=== PATIENT | male | born 1945 | race Caucasian/White ===

== ENCOUNTER 2017-06-23 17:40 | Inpatient (IN) | payer MEDICARE, OTHER ==
[~2017-06-23 17:40] MED LIST: Heparin 1,000 UNITS/ML VIAL ONE
[2017-06-23] MEDS ORDERED: Ibuprofen 800 MG TAB ONE (18:19)
[2017-06-23 18:30] LABS: #Basophils 0.1 thou/uL (0.0-0.2); #Eosinphils 0.3 thou/uL (0.0-0.7); #Lymphocytes 0.9 thou/uL (1.20-3.40); #Monocytes 0.9 thou/uL (0.11-0.59); #Neutrophils 11.2 thou/uL (1.40-6.50); %Basophils 0.4 % (0.0-1.0); %Lymphocytes 6.6 % (21.0-51.0); %Monocytes 6.6 % (0.0-10.0); %Neutrophils 84.3 % (42.0-75.0); Hemoglobin 15.2 g/dL (14.0-18.0); Mean Corpuscular HGB CONC 34.1 g/dL (32.0-36.0); Mean Corpuscular Volume 96.8 fl (80.0-94.0); Mean Platelet Volume 7.8 fL (7.4-10.4); Platelet Count 188 thou/uL (130-400); RBC Distribution Width 11.7 % (11.5-14.5); Red Blood Cell (RBC) Count 4.59 mill/uL (4.70-6.10); White Blood Cell (WBC) Count 13.3 thou/uL (4.8-10.8)
[2017-06-23 18:36] LABS: PTT 29.2 SEC (22.9-36.1); Prothrombin Time 13.7 SEC (12.0-14.7)
[2017-06-23 18:50] LABS: ALT (SGPT) 19 U/L (8-55); AST (SGOT) 21 U/L (5-34); Albumin 3.9 g/dL (3.4-4.8); Alkaline Phosphatase 61 U/L (40-150); Anion Gap 13 mmol/L (10-20); BUN (Urea Nitrogen) 31 mg/dL (8.4-25.7); Bilirubin, Total 0.3 mg/dL (0.2-1.2); CK (CPK) 138 U/L (30-200); Calc. Creatinine Clearance 0 mL/min (70-130); Calcium 9.9 mg/dL (7.8-10.44); Carbon Dioxide 23 mmol/L (23-31); Chloride 105 mmol/L (98-107); Estimated GFR-MDRD 31; Globulin 2.7 g/dL (2.4-3.5); Glucose 99 mg/dL (83-110); Potassium 4.8 mmol/L (3.5-5.1); Protein, Total 6.6 g/dL (5.8-8.1); Sodium 136 mmol/L (136-145)
[2017-06-23 19:02] LABS: CKMB 1.5 ng/mL (0-6.6); Troponin I 0.017 ng/mL (< 0.028)
--- NOTE | 2017-06-23 19:46 | RAD ---
RADIOGRAPH CHEST 1 VIEW: Date: 06/23/17 Time: 5:40 p.m. HISTORY: 71-year-old male with dyspnea. COMPARISON: None. FINDINGS: There are interstitial densities at the bilateral lung bases. It is uncertain whether these are acute or chronic. There is hyperlucency of the lung apices, right greater than left, suggestive of COPD. D espite this, the overall lung volumes are hypoinflated, with the enlarged cardiac shadow projecting i nferior to the diaphragm. There is a dual lead left subclavian pacemaker. No pneumothorax is identifi ed. IMPRESSION: 1. Bilateral basilar mild to moderate interstitial densities. Uncertain whether chronic or acute . 2. Emphysema. 3. Cardiomegaly without congestive heart failure. 4. Pacemaker. JONATHAN [] POS: ESTER
[2017-06-23] MEDS ORDERED: Azithromycin 500 MG in Sodium Chloride 0.9% 250 ML 250 ML IVPB ONE (20:00)
[2017-06-23] MEDS ORDERED: cefTRIAXone\\ROCEPHIN 1 GM, Syringe 0.4 ML in Sterile Water 9.6 ML SLOW IVP SCH (20:00)
[2017-06-23] MEDS: Sodium Chloride 0.9% 1,000 ML IV SCH (20:15)
[2017-06-23] MEDS ORDERED: Acetaminophen 325 MG TAB PO PRN (20:15)
[2017-06-23] MEDS ORDERED: Ondansetron HCl/PF 4 MG/2 ML Vial IVP PRN (20:15)
[2017-06-23] MEDS ORDERED: Ondansetron ODT 4 MG TAB SL PRN (20:15)
--- NOTE | 2017-06-23 21:12 | PDOC.EVN ---
Event Note - Event Note Event Note: [id number] H&P DICTATED 1. Pneumonia 2. HTN 3. DM type 2 plan: see orders
[2017-06-23] MEDS ORDERED: Albuterol Sulfate 1.25 MG/3 ML NEB NEB PRN (21:17)
[2017-06-23] MEDS: Acetaminophen 325 MG TAB PO PRN (21:50)
[2017-06-23 22:46] LABS: Lactic Acid 1.4 mmol/L (0.5-2.2)
--- NOTE | 2017-06-24 00:18 | HP ---
DATE OF ADMISSION: 06/23/2017 CHIEF COMPLAINT: Dyspnea, chills. HISTORY OF PRESENT ILLNESS: Patient is a 71-year-old male with past medical history of coronary omar ry disease, ESRD, COPD, chronic kidney disease, now came to the ER complaining of dyspnea. Dyspnea s tarted today, all of sudden associated with some cough. Cough associated with some sputum production , associated with chest congestion, complaints of fever and chills, also. Fever is up to 103. Sympt oms persisted, so he came to the ER. Denies any chest tightness. Denies any chest pain, denies any palpations. Denies any diarrhea, denies any nausea. Denies any vomiting. PAST MEDICAL HISTORY: As per HPI. PAST SURGICAL HISTORY: Pacemaker. SOCIAL HISTORY: Denies smoking, denies alcohol, denies any drugs. MEDICATIONS: Reviewed. ALLERGIES: No known drug allergies. REVIEW OF SYSTEMS: Constitutional: Positive for fever and chills. Eyes: Denies vision problems. Ears: Denies any hearing loss. Neck: Denies any neck pain. Cardiovascular: Denies any chest pain . Respiratory: Positive for cough and sputum production. Gastrointestinal: Denies nausea, vomitin g. Cranial nerve system: Denies syncope. Psychiatric: Denies anxiety. All other review of systems are reviewed and are negative. PHYSICAL EXAMINATION: CONSTITUTIONAL/VITAL SIGNS: At the time of H&P performed, blood pressure is 139/96, temperature 99.7 , pulse ox 96%, heart rate 87. GENERAL: Patient appears comfortable. HEENT: Pupils are equal, round, and reactive. Anterior nares patent. Nose normal. Ears normal. T eeth intact. Tongue is moist. NECK: Supple. No JVD. CARDIOVASCULAR SYSTEM: S1, S2 present, regular rate and rhythm, no murmurs, no rubs, no gallops. RESPIRATORY SYSTEM: Positive for crackles. Positive for rhonchi. No wheezing, No accessory muscle seen. GASTROINTESTINAL: Soft, nontender, no guarding, no organomegaly, no masses felt. CRANIAL NERVES SYSTEM: Awake, follows commands. Speech clear. PSYCHIATRIC: Mood appropriate at this time. INTEGUMENTARY: No obvious rashes seen. LABORATORY DATA: At the time of H&P performed white count 13.3, hemoglobin 15.2, platelet count is 1 88. PT 13.7, INR 1. BMP shows sodium 136, potassium 4.8, chloride 105, CO2 of 23, BUN 31, creatinin e 2.09. Chest x-ray: Emphysema positive for bilateral basilar mild to moderate interstitial densiti es seen. ASSESSMENT AND PLAN: Patient is a 71-year-old male. 1. Pneumonia. Plan to start patient on broad spectrum antibiotics. Plan to monitor the patient nisa sely. 2. History of chronic obstructive pulmonary disease. Continue breathing treatment. Monitor respira tory status. Continue IV Solu-Medrol 40 q.8 hours. 3. History of hypertension. Monitor blood pressure. Continue blood pressure meds. 4. History of chronic kidney disease stage 3 to 4. Monitor creatinine closely. No further workup n eeded. 5. History of coronary artery disease. Continue aspirin. 6. History of diabetes type 2. Monitor blood sugars. We will do insulin sliding scale. The case was discussed in detail with the patient.
[2017-06-24 02:55] VITALS: BMI 34.0
[2017-06-24] MEDS ORDERED: Enoxaparin Sodium 40 MG/0.4 ML SYRINGE SC SCH (09:00)
[2017-06-24] MEDS: Sodium Chloride 0.9% 1,000 ML IV SCH (11:07)
--- NOTE | 2017-06-24 11:40 | PDOC.PN ---
- Subjective Encounter Start Date: 06/24/17 Encounter Start Time: 09:15 Subjective: feels better this morning -: no cought, quit smoking long back - Objective MAR Reviewed: Yes Vital Signs & Weight: Vital Signs (12 hours) Temp Pulse Resp BP Pulse Ox 06/24/17 11:10 98.0 F 110 H 16 135/56 L 99 06/24/17 10:34 68 16 97 06/24/17 08:00 97.6 F 68 16 97 06/24/17 07:39 97.6 F 68 16 111/74 97 06/24/17 07:13 73 17 97 06/24/17 05:07 97.3 F L 71 16 120/70 98 06/24/17 01:47 72 18 98 06/24/17 00:00 98 F 74 16 95/63 97 Weight Weight 243 lb 8 oz I&O: 06/23/17 06/24/17 06/25/17 06:59 06:59 06:59 Intake Total 920 600 Output Total 600 Balance 320 600 Result Diagrams: 06/23/17 18:14 06/23/17 18:14 Additional Labs: Accuchecks 06/24/17 04:19 POC Glucose 150 H Phys Exam - Physical Examination HEENT: PERRLA, moist MMs Neck: no JVD, supple Respiratory: no wheezing, no rales rhonchi+ Cardiovascular: RRR, no significant murmur Gastrointestinal: soft, non-tender, positive bowel sounds Musculoskeletal: no edema, pulses present Neurological: non-focal, moves all 4 limbs Psychiatric: A&O x 3 Dx/Plan (1) COPD exacerbation Code(s): J44.1 - CHRONIC OBSTRUCTIVE PULMONARY DISEASE W (ACUTE) EXACERBATION Status: Acute (2) Bacteremia Code(s): R78.81 - BACTEREMIA Status: Acute (3) Sepsis Code(s): A41.9 - SEPSIS, UNSPECIFIED ORGANISM Status: Acute Qualifiers: Sepsis type: sepsis due to unspecified organism Qualified Code(s): A41.9 - Sepsis, unspecified organism (4) CKD (chronic kidney disease) stage 3, GFR 30-59 ml/min Code(s): N18.3 - CHRONIC KIDNEY DISEASE, STAGE 3 (MODERATE) Status: Chronic (5) CAD (coronary artery disease) Code(s): I25.10 - ATHSCL HEART DISEASE OF [place] CORONARY ARTERY W/O ANG PCTRS Status: Chronic Qualifiers: Coronary Disease-Associated Artery/Lesion type: [place] artery [place] vs. transplanted heart: [place] heart Associated angina: without angina Qualified Code(s): I25.10 - Atherosclerotic heart disease of [place] coronary artery without angina pectoris (6) Pacemaker Code(s): Z95.0 - PRESENCE OF CARDIAC PACEMAKER Status: Chronic (7) TRUDY (obstructive sleep apnea) Code(s): G47.33 - OBSTRUCTIVE SLEEP APNEA (ADULT) (PEDIATRIC) Status: Chronic - Plan is on zithromax and ceftriaxone -: solumedrol, nebs -: gm+ve cocci bactermia /, will consult -: echo, cpap at night -: f/u with for pulm at [facility], was visiting here (graduation) * . Review of Systems - Medications/Allergies Allergies/Adverse Reactions: Allergies Allergy/AdvReac Type Severity Reaction Status Date / Time No Known Allergies Allergy Verified 06/24/17 02:32 Medications: Current Medications Acetaminophen (Tylenol) 650 mg PO Q4H PRN PRN Reason: Headache/Fever or Pain Last Admin: 06/23/17 21:50 Dose: 650 mg Albuterol Sulfate (Albuterol Sulfate) 1.25 mg NEB Q2H PRN PRN Reason: Wheezing Albuterol/Ipratropium (Duoneb) 3 ml IPPB [id number] YESSENIA Last Admin: 06/24/17 10:34 Dose: 3 ml Enoxaparin Sodium (Lovenox) 40 mg SC [facility] Last Admin: 06/24/17 08:56 Dose: 40 mg Azithromycin 500 mg/ Sodium (Chloride) 250 mls @ 250 mls/hr IVPB Q24HR YESSENIA Ceftriaxone Sodium 1 gm/ (Sterile Water) 10 mls @ 120 mls/hr SLOW IVP Q24HR YESSENIA Sodium Chloride (Normal Saline 0.9%) 1,000 mls @ 50 mls/hr IV .Q20H YESSENIA Last Admin: 06/24/17 11:07 Dose: 1,000 mls Methylprednisolone Sodium Succinate (Solu-Medrol) 40 mg IVP Q8HR YESSENIA Last Admin: 06/24/17 06:32 Dose: 40 mg Sodium Chloride (Flush - Normal Saline) 10 ml IVF PRN PRN PRN Reason: Saline Flush Last Admin: 06/24/17 08:54 Dose: 10 ml
[2017-06-24] MEDS: Acetaminophen 325 MG TAB PO PRN (13:39)
[2017-06-24] MEDS: Nitroglycerin 0.4 MG TAB (25 Tab Bottle) SL PRN ×3 (13:41→19:15)
[2017-06-24 14:31] LABS: Troponin I 0.022 ng/mL (< 0.028)
--- NOTE | 2017-06-24 17:30 | CON ---
DATE OF CONSULTATION: 06/24/2017 REASON FOR CONSULTATION: Bacteremia. HISTORY OF PRESENT ILLNESS: A 71-year-old first admission to this hospital who is originally from [facility] and has a history of coronary artery disease with prior angioplasty and stenting, COPD, lolita al insufficiency and tachyarrhythmias with previous ablation and pacemaker placement a few years ago. Patient was admitted in March to a [facility] with fever, chills, and respirator y symptoms and reportedly was told that he had bacteria in his blood cultures, was treated for 3 days with antimicrobials and then intravenously, and then oral antimicrobials for a couple of weeks and r emained well, came to this area to participate in one of his relative's graduation ceremony at [facility] and then on the day of the ceremony he became sick with chills which developed suddenly, general malaise, some cough and some anterior chest pain. The patient was brought in to the emergency room a nd BP was 139/96, temperature 103 and then 99.7, heart rate 87. The overall exam remarkable for insp iratory crackles in the lung base, right side. The abdomen was soft, nontender. Initial lab results with a white cell count of 13,000, hemoglobin 15, platelets 188, 84% neutrophils, INR 1.0 and creati nine 2.09. We do not have any other creatinines to compare, GFR 31. Liver profile normal. Albumin 3.9. Chest x-ray with interstitial densities, emphysema, cardiomegaly, pacemaker and now we have 2/2 sets of blood cultures with gram positive cocci with preliminary identification showing that they ar e most likely are Streptococci. The patient is awake, alert at this time. Cough intermittently. No headaches, visual symptoms, sore throat, odynophagia, dysphagia, no back pain or neck pain. No join t symptoms. No dyspnea, chest pain has resolved after nitroglycerin. No abdominal pain or diarrhea. No genitourinary symptoms. No joint symptoms. No neurological symptoms or skin disorder. PAST MEDICAL HISTORY: Coronary artery disease, angioplasty, tachyarrhythmia, ablation a few years ag o with pacemaker placement, renal insufficiency, chronic COPD, recent episode of fever with admission to [facility] where reportedly he had positive blood cultures. We have contacted the hospital, but the laboratory was not allowed to release information. SOCIAL HISTORY: Former smoker. ALLERGIES: NONE. CURRENT MEDICATIONS: Tylenol, Eliquis, Ecotrin, Lipitor, azithromycin, ceftriaxone, enoxaparin, leva lbuterol, methylprednisolone 40 mg q.8 h. PHYSICAL EXAMINATION: VITAL SIGNS: T-max 99.7, now 98.0, blood pressure 130/50, pulse 110, respirations 16, O2 sat 99%. SKIN: With no areas of skin breakdown. Peripheral IV access. No Godinez catheter. No lymphadenopath y. HEENT: Ocular movements are conjugate. Nasal passages patent. Oral cavity normal and has quite a f ew teeth missing in the upper maxilla and some decay in the lower. NECK: Supple, no jugular venous distention. LUNGS: With symmetric breath sounds. No crackles or wheezing. HEART: S1, S2. Soft aortic murmur. Regular rate. Pacer pocket without tenderness or erythema. ABDOMEN: Soft, not distended or tender. No ascites. No bladder distention. No genital abnormaliti es. EXTREMITIES: No joint inflammatory activity. Pulses are 1+ in dorsalis pedis. No edema. NEUROLOGIC: Plantar responses are flexor, moves all extremities equally. Cognitive function appears to be intact. LABORATORY DATA: The labs have been discussed above as well as imaging findings and microbiology. ASSESSMENT: 1. Coronary artery disease with prior tachyarrhythmia requiring ablation and pacemaker placement. 2. Recent episode of fever with reportedly positive blood cultures in [facility] in [facility]. 3. Recrudescence of fever of acute onset after having travelled to this area for a [facility] with positive blood cultures with likely Streptococcus. DISCUSSION: Differential diagnosis includes bacteremia associated with colonization of the pacer greg d or endocarditis versus an alternate site which is not apparent at this time. Respiratory tract inf ection is a concern but the lead colonization and endocarditis would be more likely if the bacteria isolated from the blood matches the one from March in [place]. We will request for transfer of information. In the meantime, switch him to Rocephin alone. Discontinue azithromycin. Echocardi ogram, probably will need a TERESSA. If the findings are suggestive of colonization of the lead, then pa cer and lead will have to be removed and then patient treated for a protracted period of time with melo lopezy beta lactam.
[2017-06-24 17:36] LABS: Troponin I 0.023 ng/mL (< 0.028)
[2017-06-24] MEDS: cefTRIAXone\\ROCEPHIN 2 GM in Sodium Chloride 0.9% 100 ML IVPB SCH (17:59)
[2017-06-24] MEDS ORDERED: Diltiazem HCl 125 MG, Admixture Fee 1 EACH in Sodium Chloride 0.9% 100 ML IVPB SCH (19:15)
[2017-06-24] MEDS ORDERED: Azithromycin 500 MG in Sodium Chloride 0.9% 250 ML 250 ML IVPB SCH (20:00)
[2017-06-24] MEDS: Metoprolol Tartrate 50 MG TAB PO SCH (20:22)
[2017-06-24] MEDS: Atorvastatin Calcium 20 MG TAB PO SCH (20:22)
[2017-06-24] MEDS: Dronedarone HCl 400 MG TAB PO SCH (20:22)
[2017-06-24] MEDS: Apixaban 5 MG TAB PO SCH (20:23)
[2017-06-24] MEDS ORDERED: cefTRIAXone\\ROCEPHIN 1 GM in Sterile Water 10 ML SLOW IVP SCH (21:00)
[2017-06-24] MEDS ORDERED: Non-Formulary Item 1 EACH (Pravastatin Sodium [Pravastatin Sodium] 1 TAB) PO SCH (21:00)
[2017-06-24] MEDS: Albuterol Sulfate 1.25 MG/3 ML NEB NEB SCH (22:22)
[2017-06-25 05:19] LABS: #Lymphocytes 0.8 thou/uL (1.20-3.40); #Monocytes 0.5 thou/uL (0.11-0.59); #Neutrophils 15.4 thou/uL (1.40-6.50); %Eosinophils 0.1 % (0.0-10.0); %Lymphocytes 4.8 % (21.0-51.0); %Monocytes 2.9 % (0.0-10.0); %Neutrophils 92.2 % (42.0-75.0); Hemoglobin 13.6 g/dL (14.0-18.0); Mean Corpuscular HGB CONC 31.4 g/dL (32.0-36.0); Mean Corpuscular Volume 98.5 fl (80.0-94.0); Mean Platelet Volume 8.4 fL (7.4-10.4); Platelet Count 198 thou/uL (130-400); RBC Distribution Width 11.9 % (11.5-14.5); Red Blood Cell (RBC) Count 4.39 mill/uL (4.70-6.10); White Blood Cell (WBC) Count 16.7 thou/uL (4.8-10.8)
[2017-06-25 05:29] LABS: Anion Gap 11 mmol/L (10-20); BUN (Urea Nitrogen) 41 mg/dL (8.4-25.7); Calc. Creatinine Clearance 60 mL/min (70-130); Calcium 9.8 mg/dL (7.8-10.44); Carbon Dioxide 23 mmol/L (23-31); Chloride 108 mmol/L (98-107); Estimated GFR-MDRD 39; Glucose 183 mg/dL (83-110); Potassium 5.2 mmol/L (3.5-5.1); Sodium 137 mmol/L (136-145)
[2017-06-25] MEDS: Sodium Chloride 0.9% 1,000 ML IV SCH ×3 (06:55→23:59)
[2017-06-25] MEDS ORDERED: Spiriva 18 MCG CAP (Box of 5 Caps) INH SCH (09:00)
[2017-06-25] MEDS: Albuterol Sulfate 1.25 MG/3 ML NEB NEB SCH ×3 (09:02→22:32)
[2017-06-25] MEDS: Aspirin 81 mg Enteric Coated Tablet PO SCH (09:14)
[2017-06-25] MEDS: Apixaban 5 MG TAB PO SCH ×2 (09:14→20:52)
[2017-06-25] MEDS: Metoprolol Tartrate 50 MG TAB PO SCH ×2 (09:14→20:52)
[2017-06-25] MEDS: Dronedarone HCl 400 MG TAB PO SCH ×2 (09:15→20:52)
--- NOTE | 2017-06-25 11:38 | PDOC.PN ---
- Subjective Encounter Start Date: 06/25/17 Encounter Start Time: 09:00 Subjective: no sob/palp. Cough is better - Objective MAR Reviewed: Yes Vital Signs & Weight: Vital Signs (12 hours) Temp Pulse Resp BP Pulse Ox 06/25/17 09:05 97 06/25/17 09:02 61 16 06/25/17 08:00 98.4 F 61 16 130/67 96 06/25/17 04:00 98.5 F 66 18 96/53 L 96 Weight Weight 243 lb 4.8 oz I&O: 06/24/17 06/25/17 06/26/17 06:59 06:59 06:59 Intake Total 920 932.9 810 Output Total 600 380 Balance 320 932.9 430 Result Diagrams: 06/25/17 04:41 06/25/17 04:41 Additional Labs: Accuchecks 06/25/17 06/24/17 06/24/17 05:56 20:37 16:32 POC Glucose 160 H 176 H 184 H 06/24/17 06/23/17 11:10 20:26 POC Glucose 188 H 109 Phys Exam - Physical Examination HEENT: PERRLA, moist MMs Neck: no JVD, supple Respiratory: no wheezing, no rales Cardiovascular: no significant murmur, irregular Gastrointestinal: soft, non-tender, positive bowel sounds Musculoskeletal: no edema, pulses present Neurological: non-focal, moves all 4 limbs Psychiatric: A&O x 3 Dx/Plan (1) COPD exacerbation Code(s): J44.1 - CHRONIC OBSTRUCTIVE PULMONARY DISEASE W (ACUTE) EXACERBATION Status: Acute (2) Bacteremia Code(s): R78.81 - BACTEREMIA Status: Acute Comment: strep 2/2 (3) Sepsis Code(s): A41.9 - SEPSIS, UNSPECIFIED ORGANISM Status: Acute Qualifiers: Sepsis type: Streptococcus, unspecified Qualified Code(s): A40.9 - Streptococcal sepsis, unspecified; A40 - Streptococcal sepsis (4) CKD (chronic kidney disease) stage 3, GFR 30-59 ml/min Code(s): N18.3 - CHRONIC KIDNEY DISEASE, STAGE 3 (MODERATE) Status: Chronic (5) CAD (coronary artery disease) Code(s): I25.10 - ATHSCL HEART DISEASE OF [place] CORONARY ARTERY W/O ANG PCTRS Status: Chronic Qualifiers: Coronary Disease-Associated Artery/Lesion type: [place] artery [place] vs. transplanted heart: [place] heart Associated angina: without angina Qualified Code(s): I25.10 - Atherosclerotic heart disease of [place] coronary artery without angina pectoris (6) Pacemaker Code(s): Z95.0 - PRESENCE OF CARDIAC PACEMAKER Status: Chronic (7) TRUDY (obstructive sleep apnea) Code(s): G47.33 - OBSTRUCTIVE SLEEP APNEA (ADULT) (PEDIATRIC) Status: Chronic - Plan strep bacteremia, await echo results -: previous blood cs results from [facility] in [place] to b -: -e obtained yet. PCM interrogation -: will dc cardizem drip, is on multaq (had missed 2 doses with rvr) and lopre -: continue eliquis, dc steroids, watch for electrolytes and renal function * . Review of Systems - Medications/Allergies Allergies/Adverse Reactions: Allergies Allergy/AdvReac Type Severity Reaction Status Date / Time No Known Allergies Allergy Verified 06/24/17 02:32 Medications: Current Medications Acetaminophen (Tylenol) 650 mg PO Q4H PRN PRN Reason: Headache/Fever or Pain Last Admin: 06/24/17 13:39 Dose: 650 mg Albuterol Sulfate (Albuterol Sulfate) 1.25 mg NEB [id number] [facility] Last Admin: 06/25/17 09:02 Dose: 1.25 mg Apixaban (Eliquis) 5 mg PO BID [facility] Last Admin: 06/25/17 09:14 Dose: 5 mg Aspirin (Ecotrin) 81 mg PO DAILY YESSENIA Last Admin: 06/25/17 09:14 Dose: 81 mg Atorvastatin Calcium (Lipitor) 20 mg PO HS [facility] Last Admin: 06/24/17 20:22 Dose: 20 mg Dronedarone (Multaq) 400 mg PO BID [facility] Last Admin: 06/25/17 09:15 Dose: 400 mg Ceftriaxone Sodium 2 gm/ (Sodium Chloride) 100 mls @ 200 mls/hr IVPB Q24HR YESSENIA Last Admin: 06/24/17 17:59 Dose: 100 mls Sodium Chloride (Normal Saline 0.9%) 1,000 mls @ 70 mls/hr IV .[id number] [facility] Last Admin: 06/25/17 09:13 Dose: 1,000 mls Isosorbide Mononitrate (Imdur Er) 30 mg PO HS YESSENIA Last Admin: 06/24/17 20:22 Dose: 30 mg Metoprolol Tartrate (Lopressor) 50 mg PO BID YESSENIA Last Admin: 06/25/17 09:14 Dose: 50 mg Nitroglycerin (Nitrostat) 0.4 mg SL Q5MIN PRN PRN Reason: Chest Pain Last Admin: 06/24/17 19:15 Dose: 0.4 mg (Azilsartan Med/Chlorthalidone [ Edarbyclor] 40 Mg/12 .5 Mg 0 each PO DAILY YESSENIA (Roflumilast [ Daliresp] 1 Tab) Hm Med 0 each PO DAILY YESSENIA Sodium Chloride (Flush - Normal Saline) 10 ml IVF PRN PRN PRN Reason: Saline Flush Last Admin: 06/24/17 08:54 Dose: 10 ml
--- NOTE | 2017-06-25 16:35 | CON ---
DATE OF CONSULTATION: 06/25/2017 HISTORY OF PRESENT ILLNESS: The patient is a 71-year-old white male from [place] who is here for his granddaughter's graduation and was admitted with fever, chills, rigors, and temperature 103. He also was somewhat short of breath with this, but denies any chest discomfort or palpitation. He has a cardiac history in that he had a myocardial infarction in 2006 with placement of 2 stents. In June 2008, he began to have palpitations, found to have atrial flutter, and underwent radiofrequency ablation of this. In November 2015, he underwent placement of a pacemaker. In March 2017, he was hospitalized with pneumonia and chest pain. He would have tachycardic episodes up to 156 per minute. He underwent cardiac catheterization and apparently had no significant coronary artery disease. His metoprolol was increased from 25 mg daily to 50 b.i.d., Multaq b.i.d., and Eliquis was added for his episodes of paroxysmal atrial fibrillation. He is not aware when he has rapid heartbeat. He also was apparently treated with antibiotics for his pneumonia at that time. PAST MEDICAL HISTORY: Hypertension, hypercholesterolemia, paroxysmal atrial fibrillation, chronic kidney disease. OPERATIONS: Pacemaker placement and radiofrequency ablation of atrial flutter. Coronary artery stents. MEDICATIONS: Albuterol 1 puff t.i.d. p.r.n., Eliquis 5 mg b.i.d., Ecotrin 81 daily, Edarbyclor 40 mg/12.5 mg daily, Multaq 400 mg b.i.d., isosorbide mononitrate 30 at bedtime, metoprolol 50 b.i.d., omeprazole 20 at bedtime, pravastatin unknown dose daily, Daliresp 1 tablet daily, Spiriva 1 puff daily. ALLERGIES: None. SOCIAL HISTORY: He does not smoke or drink. FAMILY HISTORY: Negative for coronary artery disease. REVIEW OF SYSTEMS: A 12-point review of systems is remarkable. PHYSICAL EXAMINATION: VITAL SIGNS: Blood pressure 130/67, pulse 74. HEENT: PERRL. NECK: Supple. CHEST: Clear. CARDIAC: S1 and S2 are normal without any S3, S4, or murmurs. ABDOMEN: Normal bowel sounds without tenderness or organomegaly. EXTREMITIES: Revealed no clubbing, cyanosis, or edema. NEUROLOGIC: Grossly intact. SKIN: Warm and dry. LABORATORY DATA: Initial EKG revealed atrial pacing with nonspecific ST and T- wave changes on the monitor as well as on subsequent EKGs. He does have a supraventricular tachycardia which appears to be very regular with rate of approximately 150 per minute. He has been placed on Cardizem drip for this. Hemoglobin 13.6, hematocrit 43.2, white count 16,700, platelets 198,000. INR 1.0. Sodium 137, potassium 5.2, chloride 108, carbon dioxide 23, BUN 41, creatinine 1.75. Cardiac enzymes were unremarkable. BNP 192.4. IMPRESSION: 1. Temperature of 103, rigors with episode of pneumonia in March 2017. Certainly there needs to be concerned about the possibility of sepsis. He is growing non-hemolytic strep out of 2/2 blood cultures, concern regarding colonization of pacing wires needs to be considered. 2. History of myocardial infarction and coronary artery stent placement in 2007. He underwent a repeat catheterization in March 2017 and apparently he had no significant disease. 3. Status post pacemaker placement in November 2015. 4. History of radiofrequency ablation of atrial flutter. 5. Paroxysmal atrial fibrillation. On Eliquis, Multaq, and increased doses of beta oscar. 6. Hypertension. 7. Hypercholesterolemia. PLAN: Arrangements will be made for transesophageal echo to rule out vegetations on his pacing wire. Echocardiogram will be performed. His pacemaker is a Biotronik and this will be interrogated to see the frequency of his episodes of atrial arrhythmias. This certainly may be worse recently with this episode of sepsis at the current time. STEFANIE
[2017-06-25] MEDS: cefTRIAXone\\ROCEPHIN 2 GM in Sodium Chloride 0.9% 100 ML IVPB SCH (17:10)
[2017-06-25] MEDS: Atorvastatin Calcium 20 MG TAB PO SCH (20:52)
[2017-06-26 08:02] LABS: #Lymphocytes 1.4 thou/uL (1.20-3.40); #Monocytes 0.9 thou/uL (0.11-0.59); #Neutrophils 11.1 thou/uL (1.40-6.50); %Basophils 0.1 % (0.0-1.0); %Eosinophils 0.2 % (0.0-10.0); %Lymphocytes 10.6 % (21.0-51.0); %Monocytes 6.7 % (0.0-10.0); %Neutrophils 82.5 % (42.0-75.0); Hemoglobin 13.4 g/dL (14.0-18.0); Mean Corpuscular HGB CONC 33.7 g/dL (32.0-36.0); Mean Platelet Volume 7.8 fL (7.4-10.4); Platelet Count 183 thou/uL (130-400); RBC Distribution Width 11.8 % (11.5-14.5); Red Blood Cell (RBC) Count 4.07 mill/uL (4.70-6.10); White Blood Cell (WBC) Count 13.5 thou/uL (4.8-10.8)
[2017-06-26] MEDS: Dronedarone HCl 400 MG TAB PO SCH ×2 (08:09→21:20)
[2017-06-26] MEDS: Aspirin 81 mg Enteric Coated Tablet PO SCH (08:09)
[2017-06-26] MEDS: Metoprolol Tartrate 50 MG TAB PO SCH ×2 (08:10→21:20)
[2017-06-26] MEDS: Apixaban 5 MG TAB PO SCH ×2 (08:10→21:20)
[2017-06-26 08:14] LABS: Anion Gap 11 mmol/L (10-20); BUN (Urea Nitrogen) 42 mg/dL (8.4-25.7); Calc. Creatinine Clearance 64 mL/min (70-130); Calcium 9.8 mg/dL (7.8-10.44); Carbon Dioxide 23 mmol/L (23-31); Chloride 109 mmol/L (98-107); Estimated GFR-MDRD 42; Glucose 119 mg/dL (83-110); Potassium 4.6 mmol/L (3.5-5.1); Sodium 138 mmol/L (136-145)
[2017-06-26] MEDS: Albuterol Sulfate 1.25 MG/3 ML NEB NEB SCH ×3 (09:10→22:47)
[2017-06-26] MEDS ORDERED: Propofol 200 MG/20 ML VIAL ONE (09:35)
--- NOTE | 2017-06-26 12:22 | PDOC.PN ---
- Subjective Encounter Start Date: 06/26/17 Encounter Start Time: 10:00 Subjective: no sob, feels better -: is npo for TERESSA - Objective MAR Reviewed: Yes Vital Signs & Weight: Vital Signs (12 hours) Temp Pulse Resp BP Pulse Ox 06/26/17 09:12 99 06/26/17 09:10 68 12 06/26/17 08:00 96.3 F L 63 20 100 06/26/17 07:54 96.3 F L 63 20 158/74 H 100 06/26/17 04:00 98.2 F 62 18 141/65 H 99 Weight Weight 243 lb 4.8 oz I&O: 06/25/17 06/26/17 06/27/17 06:59 06:59 06:59 Intake Total 932.9 1870 Output Total 1010 300 Balance 932.9 860 -300 Result Diagrams: 06/26/17 07:52 06/26/17 07:52 Additional Labs: Accuchecks 06/26/17 06/25/17 06/25/17 06:07 20:02 17:35 POC Glucose 117 H 242 H 153 H Phys Exam - Physical Examination HEENT: PERRLA, moist MMs Neck: no JVD, supple Respiratory: no wheezing, no rales Cardiovascular: RRR, no significant murmur Gastrointestinal: soft, non-tender, no distention, positive bowel sounds Musculoskeletal: no edema, pulses present Neurological: non-focal, moves all 4 limbs Psychiatric: A&O x 3 Dx/Plan (1) COPD exacerbation Code(s): J44.1 - CHRONIC OBSTRUCTIVE PULMONARY DISEASE W (ACUTE) EXACERBATION Status: Acute Comment: resolving (2) Bacteremia Code(s): R78.81 - BACTEREMIA Status: Acute Comment: strep 2/2 (3) Sepsis Code(s): A41.9 - SEPSIS, UNSPECIFIED ORGANISM Status: Acute Qualifiers: Sepsis type: Streptococcus, unspecified Qualified Code(s): A40.9 - Streptococcal sepsis, unspecified; A40 - Streptococcal sepsis (4) CKD (chronic kidney disease) stage 3, GFR 30-59 ml/min Code(s): N18.3 - CHRONIC KIDNEY DISEASE, STAGE 3 (MODERATE) Status: Chronic (5) CAD (coronary artery disease) Code(s): I25.10 - ATHSCL HEART DISEASE OF [place] CORONARY ARTERY W/O ANG PCTRS Status: Chronic Qualifiers: Coronary Disease-Associated Artery/Lesion type: [place] artery [place] vs. transplanted heart: [place] heart Associated angina: without angina Qualified Code(s): I25.10 - Atherosclerotic heart disease of [place] coronary artery without angina pectoris (6) Pacemaker Code(s): Z95.0 - PRESENCE OF CARDIAC PACEMAKER Status: Chronic (7) TRUDY (obstructive sleep apnea) Code(s): G47.33 - OBSTRUCTIVE SLEEP APNEA (ADULT) (PEDIATRIC) Status: Chronic - Plan await TERESSA results -: is on ceftriaxone 2g iv daily -: awaiting prior culture results from [place] -: dc steroids, nebs prn -: to amb as tolerated, ?picc line per advice * . Review of Systems - Medications/Allergies Allergies/Adverse Reactions: Allergies Allergy/AdvReac Type Severity Reaction Status Date / Time No Known Allergies Allergy Verified 06/24/17 02:32 Medications: Current Medications Acetaminophen (Tylenol) 650 mg PO Q4H PRN PRN Reason: Headache/Fever or Pain Last Admin: 06/24/17 13:39 Dose: 650 mg Albuterol Sulfate (Albuterol Sulfate) 1.25 mg NEB [id number] [facility] Last Admin: 06/26/17 09:10 Dose: 1.25 mg Apixaban (Eliquis) 5 mg PO BID [facility] Last Admin: 06/26/17 08:10 Dose: 5 mg Aspirin (Ecotrin) 81 mg PO DAILY [facility] Last Admin: 06/26/17 08:09 Dose: 81 mg Atorvastatin Calcium (Lipitor) 20 mg PO HS [facility] Last Admin: 06/25/17 20:52 Dose: 20 mg Dronedarone (Multaq) 400 mg PO BID [facility] Last Admin: 06/26/17 08:09 Dose: 400 mg Ceftriaxone Sodium 2 gm/ (Sodium Chloride) 100 mls @ 200 mls/hr IVPB Q24HR [facility] Last Admin: 06/25/17 17:10 Dose: 100 mls Isosorbide Mononitrate (Imdur Er) 30 mg PO HS [facility] Last Admin: 06/25/17 20:52 Dose: 30 mg Metoprolol Tartrate (Lopressor) 50 mg PO BID [facility] Last Admin: 06/26/17 08:10 Dose: 50 mg Nitroglycerin (Nitrostat) 0.4 mg SL Q5MIN PRN PRN Reason: Chest Pain Last Admin: 06/24/17 19:15 Dose: 0.4 mg (Azilsartan Med/Chlorthalidone [ Edarbyclor] 40 Mg/12 .5 Mg 0 each PO DAILY YESSENIA (Roflumilast [ Daliresp] 1 Tab) Hm Med 0 each PO DAILY YESSENIA Sodium Chloride (Flush - Normal Saline) 10 ml IVF PRN PRN PRN Reason: Saline Flush Last Admin: 06/24/17 08:54 Dose: 10 ml
[2017-06-26] MEDS ORDERED: Diprivan 20 ML ONE (12:42)
[2017-06-26] MEDS ORDERED: Promethazine HCl 25 MG/ML VIAL SLOW IVP PRN (13:13)
[2017-06-26] MEDS ORDERED: Ondansetron HCl/PF 4 MG/2 ML Vial IVP PRN (13:13)
[2017-06-26] MEDS: cefTRIAXone\\ROCEPHIN 2 GM in Sodium Chloride 0.9% 100 ML IVPB SCH (17:43)
[2017-06-26] MEDS: CHLORTHALIDONE PO SCH ×2 (20:07→20:08)
[2017-06-26] MEDS: AZILSARTAN MED PO SCH ×2 (20:07→20:08)
[2017-06-26] MEDS: ROFLUMILAST PO SCH (20:08)
--- NOTE | 2017-06-26 20:14 | ECHO ---
TRANSESOPHAGEAL ECHOCARDIOGRAM DATE: 06/26/2017 HISTORY: A 71-year-old gentleman with sepsis and a pacemaker. DESCRIPTION OF PROCEDURE: The patient was taken to the PACU. The patient is sedated by Anesthesiology. The transesophageal p robe was placed in the distal esophagus and stomach. Echocardiographic images were obtained. The tr ansesophageal probe was removed. FINDINGS: 1. Normal left ventricular systolic function. 2. The aortic valve leaflets are mildly thickened. 3. Normal mitral valve. 4. Mild mitral regurgitation. 5. Mild tricuspid regurgitation. 6. No obvious vegetations noted on the cardiac valves or electronic pacemaker. 7. Atherosclerotic debris in the descending aorta. IMPRESSION: No obvious vegetation on the cardiac valves or pacemaker. POS: ESTER
[2017-06-26] MEDS: Atorvastatin Calcium 20 MG TAB PO SCH (21:20)
[2017-06-27 05:17] LABS: #Eosinphils 0.1 thou/uL (0.0-0.7); #Lymphocytes 2.3 thou/uL (1.20-3.40); #Monocytes 0.8 thou/uL (0.11-0.59); #Neutrophils 6.3 thou/uL (1.40-6.50); %Basophils 0.4 % (0.0-1.0); %Lymphocytes 24.1 % (21.0-51.0); %Monocytes 8.8 % (0.0-10.0); %Neutrophils 65.7 % (42.0-75.0); Hemoglobin 13.3 g/dL (14.0-18.0); Mean Corpuscular HGB CONC 33.3 g/dL (32.0-36.0); Mean Corpuscular Hemoglobin 32.4 pg (27.0-31.0); Mean Corpuscular Volume 97.4 fl (80.0-94.0); Mean Platelet Volume 7.9 fL (7.4-10.4); Platelet Count 185 thou/uL (130-400); RBC Distribution Width 11.6 % (11.5-14.5); Red Blood Cell (RBC) Count 4.11 mill/uL (4.70-6.10); White Blood Cell (WBC) Count 9.5 thou/uL (4.8-10.8)
[2017-06-27 05:25] LABS: Anion Gap 9 mmol/L (10-20); BUN (Urea Nitrogen) 38 mg/dL (8.4-25.7); Calc. Creatinine Clearance 64 mL/min (70-130); Calcium 9.7 mg/dL (7.8-10.44); Carbon Dioxide 26 mmol/L (23-31); Chloride 107 mmol/L (98-107); Estimated GFR-MDRD 42; Glucose 97 mg/dL (83-110); Potassium 4.8 mmol/L (3.5-5.1); Sodium 137 mmol/L (136-145)
[2017-06-27] MEDS: Albuterol Sulfate 1.25 MG/3 ML NEB NEB SCH ×3 (07:40→22:41)
[2017-06-27] MEDS: Dronedarone HCl 400 MG TAB PO SCH ×2 (08:41→20:39)
[2017-06-27] MEDS: Aspirin 81 mg Enteric Coated Tablet PO SCH (08:41)
[2017-06-27] MEDS: Metoprolol Tartrate 50 MG TAB PO SCH ×2 (08:41→20:39)
[2017-06-27] MEDS: Apixaban 5 MG TAB PO SCH ×2 (08:41→20:39)
--- NOTE | 2017-06-27 10:56 | PDOC.PN ---
- Subjective Encounter Start Date: 06/27/17 Encounter Start Time: 10:25 Subjective: f/u for strep bacteremia of unclear source. Receiving Rocephin daily and -: clinically stable. TERESSA negative for vegetations. Plan for Rocephin x 4 week -: and PICC line placement today. - Objective MAR Reviewed: Yes Vital Signs & Weight: Vital Signs (12 hours) Temp Pulse Resp BP Pulse Ox 06/27/17 07:42 97.3 F L 65 18 99 06/27/17 07:41 97.3 F L 65 18 183/85 H 99 06/27/17 07:40 66 16 99 06/27/17 04:07 100 06/27/17 04:00 98.6 F 73 18 168/72 H 99 Weight Weight 237 lb 3.2 oz I&O: 06/26/17 06/27/17 06/28/17 06:59 06:59 06:59 Intake Total 1870 3243 Output Total 1010 1325 Balance 860 1918 Result Diagrams: 06/27/17 04:49 06/27/17 04:49 Additional Labs: Accuchecks 06/27/17 06/26/17 06/26/17 05:53 20:30 16:56 POC Glucose 90 121 H 150 H 06/26/17 11:18 POC Glucose 94 Microbiology 06/23/17 19:45 Venous blood - Right Arm Blood Culture - Final Str.infantarius/infantarius 06/23/17 19:45 Venous blood - Left Arm Blood Culture - Final Str.infantarius/infantarius 06/23/17 18:00 Nasopharyngeal swab Influenza Types A,B Direct EIA - Final Laboratory Tests 06/23/17 06/25/17 06/26/17 18:14 04:41 07:52 WBC 13.3 H 16.7 H 13.5 H Radiology Reviewed by me: Yes (TERESSA - no vegetations) EKG Reviewed by me: Yes (Tele - AV pacing) Phys Exam - Physical Examination Constitutional: NAD HEENT: PERRLA, oral pharynx no lesions Neck: no JVD, supple Respiratory: no wheezing, clear to auscultation bilateral Cardiovascular: RRR Gastrointestinal: soft, non-tender, no distention, positive bowel sounds Musculoskeletal: no edema, pulses present Neurological: moves all 4 limbs Psychiatric: A&O x 3 Skin: normal turgor, cap refill <2 seconds Dx/Plan (1) Bacteremia Code(s): R78.81 - BACTEREMIA Status: Acute Comment: strep infantarius 2/2 + , continue Rocephin for 4 weeks (2) Sepsis Code(s): A41.9 - SEPSIS, UNSPECIFIED ORGANISM Status: Acute Qualifiers: Sepsis type: Streptococcus, unspecified Qualified Code(s): A40.9 - Streptococcal sepsis, unspecified; A40 - Streptococcal sepsis Comment: Secondary to #1, resolved (3) CAD (coronary artery disease) Code(s): I25.10 - ATHSCL HEART DISEASE OF [place] CORONARY ARTERY W/O ANG PCTRS Status: Chronic Qualifiers: Coronary Disease-Associated Artery/Lesion type: [place] artery [place] vs. transplanted heart: [place] heart Associated angina: without angina Qualified Code(s): I25.10 - Atherosclerotic heart disease of [place] coronary artery without angina pectoris Comment: chronic and stable, continue home regimen (4) CKD (chronic kidney disease) stage 3, GFR 30-59 ml/min Code(s): N18.3 - CHRONIC KIDNEY DISEASE, STAGE 3 (MODERATE) Status: Chronic Comment: Stable (5) TRUDY (obstructive sleep apnea) Code(s): G47.33 - OBSTRUCTIVE SLEEP APNEA (ADULT) (PEDIATRIC) Status: Chronic Comment: CPAP nocturnally (6) Pacemaker Code(s): Z95.0 - PRESENCE OF CARDIAC PACEMAKER Status: Chronic Comment: Normal functioning device after interrogation - Plan continue antibiotics, public health social worker, out of bed/ambulate, DVT proph w/SCDs Stable overall -: PICC line placement today -: Plan for Rocephin 1gm IV q24h x 4 weeks -: Continue ASA, Lipitor and Metoprolol -: CM to assist with outpt abx coordination * Likely home in am
--- NOTE | 2017-06-27 13:50 | CCL ---
SONOGRAPHIC GUIDED RIGHT UPPER EXTREMITY PICC PLACEMENT: History: Sepsis. Need for long-term antibiotics. FINDINGS: After explaining the procedure and answering all questions, the right upper extremity was prepped and draped in the usual sterile fashion. Sterile technique, buffered local anesthesia, sonographic osito nce and a 22 gauge needle were used to carefully access the right basilic vein. Standard technique wa s then used to carefully place a 5 [place] single lumen PICC so that the tip lies at the level of the superior vena cava. The catheter was flushed and secured externally. The patient tolerated the proced ure well and was returned in unchanged condition. Fluoro time equals 0 seconds. IMPRESSION: Technically successful right upper extremity PICC placement. Catheter is ready for use. POS: ESTER
[2017-06-27] MEDS: cefTRIAXone\\ROCEPHIN 2 GM in Sodium Chloride 0.9% 100 ML IVPB SCH (18:26)
[2017-06-27] MEDS: Atorvastatin Calcium 20 MG TAB PO SCH (20:39)
[2017-06-28] MEDS: Albuterol Sulfate 1.25 MG/3 ML NEB NEB SCH (07:03)
[2017-06-28] MEDS: Dronedarone HCl 400 MG TAB PO SCH (08:58)
--- NOTE | 2017-06-28 08:58 | SPC ---
SONOGRAPHIC GUIDED RIGHT UPPER EXTREMITY PICC PLACEMENT: History: Sepsis. Need for long-term antibiotics. FINDINGS: After explaining the procedure and answering all questions, the right upper extremity was prepped and draped in the usual sterile fashion. Sterile technique, buffered local anesthesia, sonographic guidance and a 22 gauge needle were used to carefully access the right basilic vein. Standard technique was then used to carefully place a 5 [place] single lumen PICC so that the tip lies at the level of the superior vena cava. The catheter was flushed and secured externally. The patient tolerated the procedure well and was returned in unchanged condition. Fluoro time equals 0 seconds. IMPRESSION: Technically successful right upper extremity PICC placement. Catheter is ready for use.
[2017-06-28] MEDS: Aspirin 81 mg Enteric Coated Tablet PO SCH (08:59)
[2017-06-28] MEDS: Acetaminophen 325 MG TAB PO PRN (08:59)
[2017-06-28] MEDS: Metoprolol Tartrate 50 MG TAB PO SCH (08:59)
[2017-06-28] MEDS: Apixaban 5 MG TAB PO SCH (08:59)
[2017-06-28] MEDS: cefTRIAXone\\ROCEPHIN 2 GM in Sodium Chloride 0.9% 100 ML IVPB SCH (11:36)
[2017-06-28 12:04] VITALS: BP 161/79; TEMP 97.9
--- NOTE | 2017-06-28 13:17 | DIS ---
DATE OF ADMISSION: 06/23/2017 DATE OF DISCHARGE: 06/28/2017 DISCHARGE DIAGNOSES: 1. Sepsis syndrome secondarily to #2, resolving. 2. Bacteremia with Streptococcus infantarius. 3. Coronary artery disease, chronic and stable. 4. Chronic kidney disease stage 3, stable. 5. Obstructive sleep apnea with nocturnal CPAP. 6. Biotronik pacemaker with normal functioning device. CONSULTATIONS: 1. Dr. Duarte and Dr. Gonzales with Cardiology Service. 2. Dr. Villalpando with Infectious Disease Service. PERTINENT LAB AND X-RAY FINDINGS: Creatinine ranged between 1.63-2.09. Troponin I negative x1. BNP 192. CBC showed a white blood cell count ranging between 9.5-16.7, hemoglobin ranged between 13.3-1 5.2. Blood cultures x2 dated 06/23/2017 positive for Streptococcus infantarius. Influenza A and B a ntigen on 06/23/2017 negative. Portable chest x-ray dated 06/23/2017 showed bilateral basilar inters titial densities. Emphysematous changes noted. Cardiomegaly without evidence of pulmonary edema. P acemaker device in place. A 2D transthoracic echocardiogram dated 06/25/2017 showed ejection fractio n of 55% to 60%. Pacer wire visualized in the right ventricle. Mild to moderate tricuspid valve reg urgitation noted. Transesophageal echocardiogram dated 06/26/2017 showed preserved ejection fraction . No obvious vegetation on cardiac valves or pacemaker lead. HOSPITAL COURSE: Patient was initially admitted to the telemetry unit after presenting with dyspnea and fever. The patient was initially noted with a temperature of 103 degrees Fahrenheit, placed on b road spectrum IV antibiotic therapy after concern for sepsis syndrome. The patient was initially jewel ated for suspected pneumonia with broad spectrum IV antibiotic therapy in addition to IV Solu-Medrol. Concern for sources of sepsis including the pacemaker device with lead involvement undergoing echoc ardiogram evaluation and consultation with Infectious Disease Service. Blood cultures were positive for 2/2 for Streptococcus infantarius, at which the patient was transitioned to IV Rocephin at the di rection of the Infectious Disease Service. No specific evidence on transesophageal echocardiogram of valvular vegetations or lead involvement; however, due to patient's longstanding pacemaker placement , concern was for potential colonization. Current recommendations are to continue IV Rocephin for ap proximately 4 weeks with repeat blood cultures at the end of antibiotic therapy. Cardiology evaluati on showed normal functioning Biotronik pacemaker device with telemetry monitoring confirming intermit tent pacing in the 60-70 range. The patient overall clinically improved in the first 24-48 hours wit h antibiotic therapy and general supportive care. The patient has been evaluated by case management services and deemed appropriate for ongoing home health services to continue outpatient infusion serv ices with Rocephin for 4 weeks after discharge. Overall, the patient clinically stabilized, tolerati ng regular oral intake, ambulatory without assistance or difficulty, voiding appropriately and ready for discharge on 06/28/2017. DISCHARGE MEDICATIONS: 1. Rocephin 2 grams IV q.24 hours x4 weeks. 2. ProAir HFA 1 puff inhaled t.i.d. p.r.n. 3. Eliquis 5 mg 1 tablet p.o. b.i.d. 4. Enteric coated aspirin 81 mg 1 tablet p.o. daily. 5. Azilsartan 40 mg/chlorthalidone 12.5 mg 1 tablet p.o. daily. 6. Multaq 400 mg p.o. b.i.d. 7. Flonase 1 spray in each naris daily. 8. Isosorbide mononitrate 30 mg p.o. at bedtime. 9. Metoprolol tartrate 50 mg p.o. b.i.d. 10. Omeprazole 20 mg p.o. at bedtime. 11. Pravachol 80 mg p.o. at bedtime. 12. Daliresp 500 mcg p.o. daily. 13. Spiriva 18 mcg inhaled daily. FOLLOWUP: The patient will follow up with his primary care provider, Dr. German in [facility] within 7 days of discharge. The patient will also follow up with his primary electro mechanical assembler in [facility] after discha rge. CONDITION ON DISCHARGE: Stable. ACTIVITY: Ad yimi. DIET: Heart healthy. SPECIAL INSTRUCTIONS: Continue Rocephin 2 g IV q.24 hours x4 weeks. Weekly CBC. Repeat blood cultu res at completion of antibiotic course. CODE STATUS: FULL. DISPOSITION: Home, with [facility] 06/28/2017. Total time preparing and coordinating discharge 45 minutes.
--- NOTE | 2017-06-30 16:46 | PQF ---
DREA WEST ALLEN [id number] CLINICAL DOCUMENTATION CLARIFICATION FORM: POST DISCHARGE Addendum to original discharge summary date: ____ Late entry note date: __ DATE: 06/30/17 ATTN: Tor Estrada MD Please exercise your independent, professional judgment in responding to the clarification form. Clinical indicators are provided on the bottom of this form for your review Discharge Summary pg. 1 Hospital Course: ....The patient was initially treated for suspected pneumonia with broad spectrum IV antibiotic therapy in addition to IV Solu-Medrol. Concerns for sources of swpsis including the pacemaker device with lead involvement undergoing echocardiogram evaluation and consultation with Infectious Disease Service. H & P pg. 3 A & S # 1. Pneumonia. Plan to start patient on broad spectrum antibiotics.... [xx ] Diagnosis of: PNA [ X] Present on admission: [ X ] Yes [ ] No [ ] Unable to determine [ ] Other diagnosis: Coding guidelines require hospitals to identify whether a diagnosis was present on admission (POA) or not. To accurately assign the appropriate POA indicator, this information must be clearly documented within the medical record. CLINICAL INDICATORS - SIGNS / SYMPTOMS / LABS Documentation of: Documentation of: Documentation of: RISK FACTORS: TREATMENT: (This form is maintained as a part of the permanent medical record) 2014 [employer]. All Rights Reserved [email or web address] [phone] STEFANIE
--- NOTE | 2017-07-08 13:33 | EKG ---
Test Reason : Blood Pressure : / mmHG Vent. Rate : 120 BPM Atrial Rate : 090 BPM P-R Int : 000 ms QRS Dur : 086 ms QT Int : 336 ms P-R-T Axes : 024 021 058 degrees QTc Int : 474 ms sinus rythm progressing to atrial fibrillation Nonspecific ST abnormality Abnormal ECG No previous ECGs available Confirmed by JERAMY LUCIO MD ([id number]) on 07/08/2017 1:33:14 PM Referred By: PRASHANTH Confirmed By:JERAMY LUCIO MD
--- NOTE | 2017-07-08 15:57 | EKG ---
Test Reason : Blood Pressure : / mmHG Vent. Rate : 079 BPM Atrial Rate : 079 BPM P-R Int : 118 ms QRS Dur : 082 ms QT Int : 342 ms P-R-T Axes : 021 001 129 degrees QTc Int : 392 ms Electronic atrial pacemaker Abnormal ECG Confirmed by PEDRITO DIAZ, ALEXANDER Huggins ([id number]), society editor LANETTE FLOWERS ([id number]) on 07/08/2017 3:56:51 PM Referred By: Confirmed By:ALEXANDER MAJOR MD
--- NOTE | 2017-07-20 18:17 | PQF ---
DREA WEST Allen MD [id number] CLINICAL DOCUMENTATION CLARIFICATION FORM: POST DISCHARGE Addendum to original discharge summary date: ____ Late entry note date: __ DATE: 07/20/2017 ATTN: Tor Estrada MD Please exercise your independent, professional judgment in responding to the clarification form. Clinical indicators are provided on the bottom of this form for your review Discharge Diagoses: 1. Sepsis syndrome...... 06/27/17 PN pg. 3 Dx/Plan #2 Sepsis Post-OP Note Post-Op Diagnosis: Sepsis Admission Vital signs Temp of 103, HR 87, R24, WBC 13.3 Please check appropriate box(s): [ ] Sepsis due to: (Pna, UTI, gangrenous gall bladder, etc.) Due to: [ ] Device (please specify) [ ] Implant [ ] Graft [ ] Infusion [ ] SIRS due to non-infectious process (please specify etiology) [ ] with organ dysfunction [ ] without organ dysfunction [ ] Severe sepsis with acute organ dysfunction of: (Examples: respiratory failure, encephalopathy, acute kidney failure, other) [ ] Localized infection without sepsis [ ] Other diagnosis [ ] Unable to determine In addition, please specify: Present on Admission (POA): [ ] Yes [ ] No [ ] Unable to determine For continuity of documentation, please document condition throughout progress notes and discharge summary. Thank You. CLINICAL INDICATORS - SIGNS / SYMPTOMS / LABS Altered mental status Fever or hypothermia (<96.8 F/36 C or > 100.4 F/38C) SAP Museum Exhibit Technician Crystal Reports Winform ViewerRespiratory rate >22/min, Hypoxemia, SBP <100mmHg Metabolic acidosis Lactic Acid >2mmol/L, Increase BUN/Blocker Polishing, decrease GFR, coag abnormalities, thrombocytopenia-plts <100k Oliguria Shock-hypotension resistant to IV fluid boluses WBC count (>12,000/mm^4 or <4000/mm^3 or 10% neuts, 10% bands) Hyperglycemia in absence of diabetes mellitus Positive blood cultures RISK FACTORS Infection/Bacteremia Pneumonia, UTI, infected wound, gangrenous gall bladder Diabetes or Cancer Surgery / surgical instrumentation / trauma Ruptured/perforated bowel, ruptured appendix Immunosuppression Advancing Age TREATMENTS: Initiation Sepsis Protocol ICU Daily CBC Blood/sputum/wound cultures ID Consult IV antibiotics - broad spectrum IV Fluids Vasopressors, meds (This form is maintained as a part of the permanent medical record) 2014 [employer]. All Rights Reserved [email or web address] [email or web address] [phone] STEFANIE
== END 2017-06-28 13:08 | disposition home health service (06) | DRG 190 ==
LOC: ERS 17:40 → T4-B 19:00 → 2NO 06-24 17:11
PROVIDERS: ADMIT Internal Medicine Addiction Medicine; ATTEND Internal Medicine Addiction Medicine
PROC: 02HV33Z Insertion of Infusion Device into Superior Vena Cava, Percutaneous Approach (ICD-10-PCS; principal; 2017-06-27)
DX: J44.0 Chronic obstructive pulmonary disease with (acute) lower respiratory infection (principal); J18.9 Pneumonia, unspecified organism; I48.0 Paroxysmal atrial fibrillation; N18.3 Chronic kidney disease, stage 3 (moderate); I07.1 Rheumatic tricuspid insufficiency; J44.1 Chronic obstructive pulmonary disease with (acute) exacerbation; E78.00 Pure hypercholesterolemia, unspecified; G47.33 Obstructive sleep apnea (adult) (pediatric); I12.9 Hypertensive chronic kidney disease with stage 1 through stage 4 chronic kidney disease, or unspecified chronic kidney disease; Z95.0 Presence of cardiac pacemaker; Z79.82 Long term (current) use of aspirin; I25.2 Old myocardial infarction; Z79.01 Long term (current) use of anticoagulants
CPT/HCPCS: 36415; 36416; 36569; 71010; 80048; 80053; 82550; 82553; 83605; 83880; 84484; 85025; 85610; 85730; 87040; 87077; 87149; 87186; 93005; 93010; 93306; 93312; 94640; 94660; 94760; A4216; C1751; J0456; J0696; J1644; J1650; J2704; J2920; J7050; J7620